=== PATIENT | female | born 2000 | race Caucasian/White ===

== ENCOUNTER 2022-05-08 10:35 | Outpatient (CLI) | payer OTHER, SELFPAY ==
[2022-05-08 11:07] LABS: Total Volume 24 Hour Urine 2600 ml
[2022-05-08 11:10] LABS: Specific Gravity Ur 1.012
[2022-05-08 11:17] LABS: Total Protein Urine 24 Hr 156 mg/24hr (28-141); Total Protein Urine Random 6 mg/dL
== END 2022-05-08 10:36 | disposition home or self-care (01) ==
LOC: ANHLAB 10:44
PROVIDERS: Visit Provider Student in an Organized Health Care Education/Training Program
DX: O16.9 Unspecified maternal hypertension, unspecified trimester (principal); Z3A.00 Weeks of gestation of pregnancy not specified
CPT/HCPCS: 81050; 84156

== ENCOUNTER 2022-08-30 09:38 | Inpatient (IN) | payer OTHER, SELFPAY ==
[2022-08-30] VITALS (42 sets, daily range): BP systolic 44–154; BP diastolic 22–130; PULSE 60–189; RESP 18; TEMP 36.6–37.3; O2SAT 95–100; BMI 38.9
[2022-08-30 10:54] LABS: Basophils Percent Auto 0.2 % (0.2-1.2); Eosinophils Absolute Auto 0.1 K/mm3 (0-0.3); Eosinophils Percent Auto 0.5 % (0-4.4); Hematocrit 38.4 % (37.0-47.0); Hemoglobin 12.5 g/dL (12.0-15.0); Immature Granulocyte Absolute 0.08 K/mm3 (0.00-0.031); Immature Granulocyte Percent A 0.7 % (0-0.5); Lymphocytes Absolute Auto 1.35 K/mm3 (0.9-3.2); Lymphocytes Percent Auto 11.3 % (18.3-44.2); Mean Corpuscular HGB Conc 32.6 g/dl (32-36); Mean Corpuscular Hemoglobin 29.1 pg (26-34); Mean Corpuscular Volume 89.3 fl (80-100); Mean Platelet Volume 10.2 fl (7.4-10.4); Monocytes Absolute Auto 0.6 K/mm3 (0.1-0.6); Monocytes Percent Auto 4.9 % (2.6-8.5); Neutrophils Absolute Auto 9.9 K/mm3 (1.3-6.7); Neutrophils Percent Auto 82.4 % (45.5-73.1); Platelet Count Result 245 k/mm3 (150-375); Red Cell Distribution Width 15.3 % (11.5-14.5)
[2022-08-30] MEDS: AMPICILLIN 2 GM/NS 100 ML 2 GM/100 ML BAG IVPB (11:20)
[2022-08-30] MEDS: LACTATED RINGERS 1,000 ML 125 ML IV CONT ×2 (11:21→17:33)
[2022-08-30] MEDS: OXYTOCIN 30 UNITS/NS 500 ML 30 UNITS/500 ML BAG 6 UNITS IV CONT (11:45)
--- NOTE | 2022-08-30 11:54 | PM.IMHP ---
H&P: HPI History of Present Illness Date/Time: 08/30/22 11:54 Chief Complaint: Ruptured membranes at term Narrative: a 22-year-old 1 para 0 who presents at term with spontaneous rupture membranes prior to admission. Her has been uncomplicated. She is positive for group B strep and will be prophylaxed PMFSH Family History Family History Other No pertinent family history Social History Social History Smoking status: Never smoker Second hand tobacco smoke exposure: No Substance use: never Spiritual care concerns: No Meds Home Medications and Allergies Home Medications Medication Instructions Recorded Confirmed Type ferrous sulfate 325 mg (65 mg 325 mg PO DAILY 07/31/22 07/31/22 History iron) tablet labetalol 100 mg tablet 100 mg PO Q12H 07/31/22 07/31/22 History prenat.vits,dawson,zzl-hvhh-tuaqv 1 tablet PO DAILY 07/31/22 07/31/22 History Allergies Allergy/AdvReac Type Severity Reaction Status Date / Time No Known Allergies Allergy Verified 07/31/22 14:38 Vital Signs Vital Signs - 24 hr 08/30/22 10:46 08/30/22 11:01 08/30/22 11:31 Pulse Rate 86 83 78 Blood Pressure 135/92 H 132/81 135/91 H 08/30/22 11:38 Pulse Rate 77 Blood Pressure 125/85 Exam Const: General: cooperative, healthy appearing and comfortable Nutritional Appearance: average body habitus Orientation/consciousness: oriented to person, oriented to place and oriented to time Resp: Effort & Inspection: normal respiratory effort Cardio: Rate: regular rate Rhythm: regular rhythm Heart sounds: S1 normal heart sound present and S2 normal heart sound present GI: Inspection: normal to inspection : External Female Exam: normal external appearance Speculum Exam - Vagina: normal appearance of the vagina Speculum Exam - Cervix: normal appearance of the cervix ( cervix 1/ 50%/ -2 FHTs reassuring) H&P: Results Labs Labs: Short CBC 08/30/22 Range/Units 10:43 WBC 12.0 H (4.5-10.0) K/mm3 Hgb 12.5 (12.0-15.0) g/dL Hct 38.4 (37.0-47.0) % Plt Count 245 (150-375) k/mm3 Assessment and Plan Assessment and plan (1) Term : Code(s): Z34.90 - Encounter for supervision of normal , unspecified, unspecified trimester Status: Acute (2) Positive testing for group B Streptococcus: Code(s): B95.1 - Streptococcus, group B, as the cause of diseases classified elsewhere Status: Acute Plan spontaneous vaginal delivery is expected. Group B strep prophylaxis will be undertaken. She has an epidural candidate will add Pitocin as she is jacobo irregularly
[2022-08-30 13:53] LABS: Alanine Aminotransferase 29 U/L (6-35); Albumin Level 4.1 g/dL (3.5-5.1); Alkaline Phosphatase 107 U/L (38-126); Anion Gap 9 mmol/L (8-16); Aspartate Amino Transferase 26 U/L (14-36); Bilirubin,Total 0.5 mg/dL (0.2-1.3); Blood Urea Nitrogen 12 mg/dL (7-17); Calcium 9.3 mg/dL (8.4-10.2); Carbon Dioxide 24 mmol/L (22-30); Chloride 101 mmol/L (98-107); Estimated CRCL calculation 166 ml/min; Estimated Glomerular Filt Rate > 60; Glucose 109 mg/dL (65-110); Potassium 4.1 mmol/L (3.4-5.0); Sodium 134 mmol/L (137-145); Uric Acid 5.3 mg/dL (2.5-7.5)
[2022-08-30 14:33] LABS: HIV 1/2 Ab P24 Ag Result Negative (Negative)
[2022-08-30] MEDS: AMPICILLIN 1 GM/NS 50 ML 1 GM/50 ML BAG IVPB (15:21)
--- NOTE | 2022-08-30 15:58 | PM.OBPNLAB ---
Pain Control Date/time seen: 08/30/22 15:58 Pain control: tolerating well Pelvic Exam Dilation (cm): 7 Amniotic membrane status: Leaking
[2022-08-30] MEDS: fentaNYL CITRATE INJ (*CRX) 100 MCG/2 ML VIAL 50 MCG IV PUSH (17:34)
--- NOTE | 2022-08-30 18:14 | PM.OBPNLAB ---
Pain Control Date/time seen: 08/30/22 18:14 Pain control: tolerating well and epidural Pelvic Exam Dilation (cm): 10 Amniotic membrane status: Leaking
--- NOTE | 2022-08-30 19:21 | PM.OBPRVD ---
OB - Delivery Note Procedure Delivery date: 08/30/22 Events: Positive Group B Strep (GBS) Induction method: None Delivery augmentation: Pitocin Delivery monitor: External FHT Route of delivery: Laceration Description: None Anesthesia type: Epidural Disposition: Floor [place] Baby Date of : 08/30/22 Time of : 19:10 Weeks of gestation at delivery: 40 Infant gender: Female Weight (pounds): 7 Weight (ounces): 12 presentation: vertex position: Right Occiput Anterior Placenta delivery description: Spontaneous Cord Vessel Description: 3 Vessels score one minute: 8 score five minutes: 9 Narrative: amp x 2
--- NOTE | 2022-08-30 21:37 | PC.NURSE ---
Patient transferred to post room #286 per wheelchair from labor and delivery. Support person present. Oriented to unit, room, information board, rooming in, admission packet and security measures. Patient verbalizes understanding.
[2022-08-31 03:40] VITALS: BP 132/74; PULSE 90; RESP 20; TEMP 37.1
[2022-08-31 05:11] LABS: Hematocrit 36.3 % (37.0-47.0); Hemoglobin 11.9 g/dL (12.0-15.0)
--- NOTE | 2022-08-31 06:37 | P.PNOB_ITS ---
OB - PN: Subj Subjective Date/time seen: 08/31/22 06:37 Patient comments: no complaints and pain well controlled baby status: doing well OB - PN: Obj Data Labs CBC & Chem 7: 08/31/22 03:42 08/30/22 13:33 Labs: Laboratory Results - last 24 hr 08/30/22 08/30/22 08/30/22 10:43 10:43 13:33 WBC 12.0 H RBC 4.30 Hgb 12.5 Hct 38.4 MCV 89.3 MCH 29.1 MCHC 32.6 RDW 15.3 H Plt Count 245 MPV 10.2 Immature Gran % (Auto) 0.7 H Neut % (Auto) 82.4 H Lymph % (Auto) 11.3 L [place] % (Auto) 4.9 Eos % (Auto) 0.5 Baso % (Auto) 0.2 Lymph # (Auto) 1.35 [place] # (Auto) 0.6 Eos # (Auto) 0.1 Baso # (Auto) 0.0 Abs Immat Gran (auto) 0.08 H Absolute Neuts (auto) 9.9 H Absolute Nucleated RBC 0.0 Nucleated RBC % 0.0 Sodium 134 L Potassium 4.1 Chloride 101 Carbon Dioxide 24 Anion Gap 9 BUN 12 Creatinine 0.60 L Estim Creat Clear Calc 166 Estimated GFR > 60 Glucose 109 Uric Acid 5.3 Calcium 9.3 Total Bilirubin 0.5 AST 26 ALT 29 Alkaline Phosphatase 107 Total Protein 7.0 Albumin 4.1 HIV 1&2 Ab/P24 Ag 4thGn Blood Type O Positive Antibody Screen Negative 08/30/22 08/31/22 13:33 03:42 WBC RBC Hgb 11.9 L Hct 36.3 L MCV MCH MCHC RDW Plt Count MPV Immature Gran % (Auto) Neut % (Auto) Lymph % (Auto) [place] % (Auto) Eos % (Auto) Baso % (Auto) Lymph # (Auto) [place] # (Auto) Eos # (Auto) Baso # (Auto) Abs Immat Gran (auto) Absolute Neuts (auto) Absolute Nucleated RBC Nucleated RBC % Sodium Potassium Chloride Carbon Dioxide Anion Gap BUN Creatinine Estim Creat Clear Calc Estimated GFR Glucose Uric Acid Calcium Total Bilirubin AST ALT Alkaline Phosphatase Total Protein Albumin HIV 1&2 Ab/P24 Ag 4thGn Negative Blood Type Antibody Screen OB - PN A/P Plan day: 1 Plan: routine care Time Spent With Patient Time: Total time spent is greater than 50% in coordination of care (as documented) at patient's floor/unit and/or counseling patient: Time with patient: less than 15 minutes Exam Const: General: cooperative, healthy appearing and comfortable Nutritional Appearance: average body habitus Resp: Effort & Inspection: normal respiratory effort GI: Inspection: normal to inspection
--- NOTE | 2022-08-31 06:43 | PM.DS ---
DS: Admitting Diagnosis Discharge Date Admitting Diagnosis term positive group B strep DS: Discharge Diagnosis Discharge Diagnosis (1) Positive testing for group B Streptococcus: Code(s): B95.1 - Streptococcus, group B, as the cause of diseases classified elsewhere Status: Acute (2) Term : Code(s): Z34.90 - Encounter for supervision of normal , unspecified, unspecified trimester Status: Acute DS: Summary Hospital Course Reason for hospitalization: patient was admitted in active labor at term Hospital Course: patient was admitted in active labor at term. She underwent spontaneous vaginal delivery with adequate group B strep prophylaxis. She used epidural anesthesia. The procedure was unremarkable. Her 48hour course was unremarkable she remained afebrile. She was up, voiding without difficulty, ambulating, breast-feeding, generally without complaints. Time Spent with Patient Time attestation: Total time spent providing and/or coordinating discharge services: Exam Const: General: cooperative, healthy appearing and comfortable Orientation/consciousness: oriented to person, oriented to place and oriented to time HENMT: Head: normal to inspection Resp: Effort & Inspection: normal respiratory effort GI: Inspection: normal to inspection DS: Data Data Completed and Pending Labs on day of discharge: Labs from last 24 hours 08/31/22 08/30/22 08/30/22 03:42 13:33 13:33 WBC RBC Hgb 11.9 L Hct 36.3 L MCV MCH MCHC RDW Plt Count MPV Immature Gran % (Auto) Neut % (Auto) Lymph % (Auto) [place] % (Auto) Eos % (Auto) Baso % (Auto) Lymph # (Auto) [place] # (Auto) Eos # (Auto) Baso # (Auto) Abs Immat Gran (auto) Absolute Neuts (auto) Absolute Nucleated RBC Nucleated RBC % Sodium 134 L Potassium 4.1 Chloride 101 Carbon Dioxide 24 Anion Gap 9 BUN 12 Creatinine 0.60 L Estim Creat Clear Calc 166 Estimated GFR > 60 Glucose 109 Uric Acid 5.3 Calcium 9.3 Total Bilirubin 0.5 AST 26 ALT 29 Alkaline Phosphatase 107 Total Protein 7.0 Albumin 4.1 RPR HIV 1&2 Ab/P24 Ag 4thGn Negative Blood Type Antibody Screen 08/30/22 08/30/22 08/30/22 10:43 10:43 10:43 WBC 12.0 H RBC 4.30 Hgb 12.5 Hct 38.4 MCV 89.3 MCH 29.1 MCHC 32.6 RDW 15.3 H Plt Count 245 MPV 10.2 Immature Gran % (Auto) 0.7 H Neut % (Auto) 82.4 H Lymph % (Auto) 11.3 L [place] % (Auto) 4.9 Eos % (Auto) 0.5 Baso % (Auto) 0.2 Lymph # (Auto) 1.35 [place] # (Auto) 0.6 Eos # (Auto) 0.1 Baso # (Auto) 0.0 Abs Immat Gran (auto) 0.08 H Absolute Neuts (auto) 9.9 H Absolute Nucleated RBC 0.0 Nucleated RBC % 0.0 Sodium Potassium Chloride Carbon Dioxide Anion Gap BUN Creatinine Estim Creat Clear Calc Estimated GFR Glucose Uric Acid Calcium Total Bilirubin AST ALT Alkaline Phosphatase Total Protein Albumin RPR Pending HIV 1&2 Ab/P24 Ag 4thGn Blood Type O Positive Antibody Screen Negative Discharge Plan Discharge Attending physician on discharge: Maikel Rebolledo Discharging Clinician: Maikel Rebolledo Patient Disposition: Home, Self-Care Activity: may shower and no straining Diet: heart healthy Wound Care Instructions: follow printed instructions Patient Instructions: Antibiotic Form Stand Alone Forms: General Discharge Information Follow-up/Referrals: Maikel Rebolledo MD [Physician] - Discharge Medications: Continued ferrous sulfate 325 mg (65 mg iron) Tablet 325 mg PO DAILY #2 Tablet 1 tablet PO DAILY Discontinued labetalol 100 mg Tablet 100 mg PO Q12H Date of admission: 08/30/22 09:38 Primary Care Provider: Waqar BATISTA
[2022-08-31] MEDS: IBUPROFEN 600 MG TABLET PO (07:06)
[2022-08-31] MEDS: DOCUSATE SODIUM 100 MG CAPSULE PO ×2 (08:03→18:00)
[2022-08-31] MEDS: MULTIVIT/MIN/PREN/FOL AC/IRON TABLET 1 TAB PO (08:03)
[2022-08-31 09:10] VITALS: BP 138/81; PULSE 81; RESP 18; TEMP 36.9; O2SAT 97
--- NOTE | 2022-08-31 09:16 | WPDANLDPN2 ---
Anes-Prog Note L&D Date/Time: 08/31/22 09:16 Comfortable throughout: labor and delivery Neuraxial method: epidural Epidural/Spinal procedure site: clean & non-tender Neuro status: Neuro function grossly intact. Cardiovascular status: normal Respiratory status: normal Airway patency: baseline Mental status: baseline Post-Op hydration status: normal Vital Signs: Last Vital Signs Temp 37.1 C 08/31/22 03:40 Pulse 90 08/31/22 03:40 Resp 20 08/31/22 03:40 BP 132/74 08/31/22 03:40 Pulse Ox 100 08/30/22 18:31 O2 Del Method Room Air 08/30/22 18:00 Pain score (VAS): 11/27 I/O: Intake & Output 08/30/22 08/31/22 08/31/22 23:59 07:59 15:59 Intake Total 2550 Output Total 59 Balance 2491 Post-procedural complaints: none Patient feedback: Patient satisfied with anesthetic care.
[2022-08-31 12:25] VITALS: BP 136/69; PULSE 82; RESP 18; TEMP 36.9; O2SAT 96
[2022-08-31 12:40] LABS: Rapid Plasma Reagin Non-Reactive (NonReactive)
--- NOTE | 2022-08-31 14:19 | PC.NURSE ---
[id number] Introductions were made, then consulted with patient to assess needs related to . Mother led the conversation with her?plans to feed?her infant and the?experience so far. Resources provided for inpatient and outpatient services using a resource guide and mom/baby guide. Mother voiced understanding of information and will call if there is a request for assistance. Reported to primary RN. [phone] Consulted with patient to assess needs related to . Mother led conversation with her experience with feeding baby so far. Mother works well with her infant with encouragement. Reviewed working with infant, breast, nipples and how to protect the nipples with an optimal deep latch, good positioning, and good hand washing. Encouraged understanding the benefits of skin to skin, responding to feeding cues, frequencies of feeding 8-12 times in 24 hours (approximately 2-3 hours), duration of feedings, milk production, intake/output feeding sheet and signs of adequate intake encouraging swallowing at the breast. Reviewed positioning and alignment, supporting breast, off-centered (asymmetrical latch) and leading with the chin with big, open, wide gape. Infant latched optimally to the right breast in football position. Education given to mother of how to visualize suck/swallow ratios and drinking at the breast. was able to maintain latch without discomfort to mother. Resources used to facilitate learning were used from the visual handout, tool, mom and baby guide. Mother voiced understanding of the education shared, calling for assistance if the does not latch or if there is discomfort with . Reported to the primary RN.
[2022-08-31 15:50] VITALS: BP 131/57; PULSE 88; RESP 16; TEMP 36.8; O2SAT 100
[2022-08-31 18:31] VITALS: BP 149/88; PULSE 80; RESP 18; TEMP 37.1; O2SAT 97
[2022-08-31 20:30] VITALS: BP 133/70; PULSE 86
[2022-09-01] MEDS: ACETAMINOPHEN 325 MG TABLET 650 MG PO (01:10)
[2022-09-01] MEDS: IBUPROFEN 600 MG TABLET PO (01:10)
--- NOTE | 2022-09-01 07:57 | PM.OBPNVD ---
OB - PN: Subj Subjective Date/time seen: 09/01/22 07:57 Patient comments: no complaints and pain well controlled baby status: doing well and nursing well OB - PN: Obj Data Labs CBC & Chem 7: 08/31/22 03:42 08/30/22 13:33 Labs: Laboratory Results - last 24 hr 08/30/22 10:43 RPR Non-reactive OB - PN A/P Plan day: 2 Plan: routine care, discharge home and follow up 6 weeks Time Spent With Patient Time: Total time spent is greater than 50% in coordination of care (as documented) at patient's floor/unit and/or counseling patient: Time with patient: less than 15 minutes Exam Const: General: cooperative, healthy appearing and comfortable Nutritional Appearance: average body habitus Orientation/consciousness: oriented to person, oriented to place and oriented to time HENMT: Head: normal to inspection GI: Inspection: normal to inspection
[2022-09-01 08:00] VITALS: BP 137/79; PULSE 60; RESP 16; TEMP 36.4; O2SAT 99
--- NOTE | 2022-09-01 11:30 | PC.NURSE ---
Patient viewed the discharge video Mother & Baby Care, The First Two Weeks . Patient was given the opportunity and encouraged to ask questions. Patient verbalized understanding of information shared and has been given the mother/baby guide for home reference.
[2022-09-03 09:06] VITALS: BP 136/88; PULSE 73; RESP 20; TEMP 37; O2SAT 100
== END 2022-09-01 12:44 | disposition home or self-care (01) | DRG 807 ==
LOC: ANHLDR 10:01 → ANHOB2 21:42
PROVIDERS: Admitting Provider Obstetrics & Gynecology; Visit Provider Obstetrics & Gynecology
DX: O99.824 Streptococcus B carrier state complicating childbirth (principal); Z37.0 Single live birth; O10.92 Unspecified pre-existing hypertension complicating childbirth; O77.0 Labor and delivery complicated by meconium in amniotic fluid; Z3A.40 40 weeks gestation of pregnancy
CPT/HCPCS: 36415; 80053; 84112; 84550; 85014; 85018; 85025; 86592; 86703; 86850; 86900; 86901; A9270; G0432; J0290; J2590; J2795; J3010; J7120

== ENCOUNTER 2025-05-31 06:16 | Inpatient (IN) | payer OTHER, SELFPAY ==
[2025-05-31] VITALS (161 sets, daily range): BP systolic 79–153; BP diastolic 39–90; PULSE 30–162; TEMP 36.3–37.3; O2SAT 85–100; BMI 40.8
--- NOTE | 2025-05-31 06:16 | LDADM ---
This patient, Reena Monge, was admitted to Labor/Delivery/Recovery 107 on 05/31/25 at 06:16. Plans for labor, pain management and were discussed with patient. Patient/family oriented to hospital policies and general routines including ID bracelet, bed and alarms, visiting hours, pain management, procedures, bathroom and other care routines, personal items, smoking policy, room service/diet and guest tray routines, infant security routines, and visiting hours. Patient/Family are encouraged to report perceived risks to care and to ask questions if they do not understand what they are told or what they should do. See OBIX for further documentation.
--- NOTE | 2025-05-31 06:43 | PM.IMHP ---
H&P: HPI History of Present Illness Date/Time: 05/31/25 06:43 Chief Complaint: Induction of labor Narrative: This is a 25-year-old 2 para last menstrual period EDC is 05/27/2020 confirmed by 10 week ultrasound presents for induction of labor at 40 5 7 weeks gestation. She has positive group B strep. She did fail her 1hour glucose tolerance test but was 4/4 normal under 3hour Review of Systems Review of Systems: All systems reviewed & are unremarkable except as noted in HPI and below PMFSH Family History Family History Other No pertinent family history Social History Social History Smoking status: Never smoker Second hand tobacco smoke exposure: No Substance use: never Spiritual care concerns: No Meds Home Medications and Allergies Home Medications ?Medication ?Instructions ?Recorded ?Confirmed ?Type prenat.vits,dawson,qtw-hfya-capgh 1 tablet PO DAILY 07/31/22 05/10/25 History Allergies Allergy/AdvReac Type Severity Reaction Status Date / Time No Known Allergies Allergy Verified 05/10/25 13:46 Exam Const: General: cooperative, healthy appearing and comfortable Nutritional Appearance: average body habitus Orientation/consciousness: oriented to person, oriented to place and oriented to time HENMT: Head: normal to inspection Resp: Effort & Inspection: normal respiratory effort Cardio: Rate: regular rate Rhythm: regular rhythm Heart sounds: S1 normal heart sound present and S2 normal heart sound present GI: Inspection: normal to inspection (Gravid soft uterus) : External Female Exam: normal external appearance Speculum Exam - Vagina: normal appearance of the vagina Speculum Exam - Cervix: normal appearance of the cervix (2/50/-2. FHTs reassuring) Assessment and Plan Assessment and plan (1) Term : Code(s): Z34.90 - Encounter for supervision of normal , unspecified, unspecified trimester Status: Acute (2) Positive testing for group B Streptococcus: Code(s): B95.1 - Streptococcus, group B, as the cause of diseases classified elsewhere Status: Acute Plan Medical induction of labor. Group B strep prophylaxis. Spontaneous vaginal delivery is expected. She is an epidural candidate
[2025-05-31 07:05] LABS: Hematocrit 38.8 % (37.0-47.0); Hemoglobin 12.7 g/dL (12.0-15.0); Immature Granulocyte Percent A 0.9 % (0-0.5); Lymphocytes Absolute Auto 1.88 K/mm3 (0.9-3.2); Mean Corpuscular HGB Conc 32.7 g/dl (32-36); Mean Corpuscular Hemoglobin 28.3 pg (26-34); Mean Corpuscular Volume 86.4 fl (80-100); Nucleated Red Blood Cells Absolute Auto 0.000 K/mm3 (0.0-0.012); Nucleated Red Blood Cells Perc 0.0 % (0.0-0.2); Platelet Count Result 215 k/mm3 (150-375); Red Blood Count 4.49 M/mm3 (4.2-5.4); White Blood Count 12.5 K/mm3 (4.5-10.0)
[2025-05-31] MEDS: OXYTOCIN 30 UNITS/NS 500 ML 30 UNITS/500 ML BAG IV CONT (07:20)
[2025-05-31] MEDS: LACTATED RINGERS 1,000 ML 125 ML IV CONT ×3 (07:20→17:32)
[2025-05-31] MEDS: AMPICILLIN SODIUM 2 GM in SODIUM CHLORIDE 0.9% IV 100 ML 200 ML IVPB (07:49)
[2025-05-31 08:14] LABS: Syphilis IgG/IgM Antibody Non-Reactive (Nonreactive)
--- NOTE | 2025-05-31 11:04 | PM.OBPNLAB ---
Pain Control Date/time seen: 05/31/25 11:04 Pain control: tolerating well Pelvic Exam Amniotic membrane status: Leaking Contractions Monitor mode: External Contraction frequency: 3 Contraction pattern: Regular Status status: Category l
[2025-05-31] MEDS: AMPICILLIN SODIUM 1 GM in SODIUM CHLORIDE 0.9% IV 50 ML 100 ML IVPB ×3 (11:57→20:01)
--- NOTE | 2025-05-31 12:24 | PM.OBPNLAB ---
Pain Control Date/time seen: 05/31/25 12:24 Pain control: tolerating well Pelvic Exam Dilation (cm): 4 Effacement (%): 75 station: -1 Amniotic membrane status: Leaking Contractions Monitor mode: External Contraction frequency: 3 Contraction pattern: Regular Status status: Category l
--- NOTE | 2025-05-31 16:51 | P.PNAN_ITS ---
Anes - Eval Pre Procedure Procedure: Labor epidural Date/Time: 05/31/25 16:51 Surgeon: Michelle Preop Diagnosis: Abdominal pain with contractions Pre Op Diagnosis: IOL Patient Data Age: 25 Gender: F Height: 1.73 m Weight: 122 kg Last Vital Signs Temp 97.6 F 05/31/25 16:06 Pulse 80 05/31/25 16:46 BP 132/68 05/31/25 16:46 O2 Del Method Room Air 05/31/25 07:00 Allergies Allergy/AdvReac Type Severity Reaction Status Date / Time No Known Allergies Allergy Verified 05/10/25 13:46 Home Medications ?Medication ?Instructions ?Recorded ?Confirmed ?Type prenat.vits,dawson,qmm-hjts-xufkh 1 tablet PO DAILY 07/31/22 05/10/25 History Laboratory Tests 05/31/25 06:57 WBC 12.5 H K/mm3 (4.5-10.0) RBC 4.49 M/mm3 (4.2-5.4) Hgb 12.7 g/dL (12.0-15.0) Hct 38.8 % (37.0-47.0) MCV 86.4 fl (80-100) MCH 28.3 pg (26-34) MCHC 32.7 g/dl (32-36) RDW 14.6 H % (11.5-14.5) Plt Count 215 k/mm3 (150-375) MPV 10.9 H fl (7.4-10.4) Immature Gran % (Auto) 0.9 H % (0-0.5) Neut % (Auto) 78.9 H % (45.5-73.1) Lymph % (Auto) 15.0 L % (18.3-44.2) [place] % (Auto) 4.2 % (2.6-8.5) Eos % (Auto) 0.6 % (0-4.4) Baso % (Auto) 0.4 % (0.2-1.2) Lymph # (Auto) 1.88 K/mm3 (0.9-3.2) [place] # (Auto) 0.5 K/mm3 (0.1-0.6) Eos # (Auto) 0.1 K/mm3 (0-0.3) Baso # (Auto) 0.1 K/mm3 (0.0-0.1) Abs Immat Gran (auto) 0.11 H K/mm3 (0.00-0.031) Absolute Neuts (auto) 9.9 H K/mm3 (1.3-6.7) Absolute Nucleated RBC 0.000 K/mm3 (0.0-0.012) Nucleated RBC % 0.0 % (0.0-0.2) Syphilis IgG/IgM Ab Non-reactive (Nonreactive) Blood Type O Positive Antibody Screen Negative : gestational age HCG: positive Patient hx anesthesia problems: none Family hx anesthesia problems: none Results Review: All pre-operative results and documents have been reviewed as part of the pre- operative evaluation. [facility] Past Medical History Medical History (Updated 05/31/25 @ 16:52 by Sawyer Thomas Jr., CRNA) Morbid obesity Term Family History Family History Other No pertinent family history Social History Social History Smoking status: Never smoker Second hand tobacco smoke exposure: No Substance use: never Do You Feel Safe in your Home?: Yes Lack of Transportation: No Lack of Food: Never True Current Housing: I Have Housing Concerned About Future Housing: No Difficulty Paying Gas/Electric Bills: No Difficulty Paying for Meds: No Currently Unemployed: No Education: Trade/Vocational Certificate Difficulty w/ Childcare or Family Care: No Spiritual care concerns: No Exam Day of Procedure 05/31/25 16:51 Patient weight: morbidly obese Airway: Mallampati scale class II
--- NOTE | 2025-05-31 18:15 | PM.OBPNLAB ---
Pain Control Date/time seen: 05/31/25 18:15 Pain control: tolerating well and epidural Pelvic Exam Dilation (cm): 7 Effacement (%): 90 station: -1 Amniotic membrane status: Leaking Contractions Monitor mode: External Contraction frequency: 3 Contraction pattern: Regular Status status: Category l
--- NOTE | 2025-05-31 23:13 | P.PCNOB_ITS ---
OB - Vaginal Delivery Note Procedure Delivery date: 05/31/25 Events: Elective Induction of Labor and Positive Group B Strep (GBS) Induction method: AROM Delivery augmentation: Pitocin Delivery monitor: External FHT and External Uterine Route of delivery: forceps Episiotomy description: None Laceration Description: None Quantitative Blood Loss (ml): 62 Anesthesia type: Epidural Disposition: Floor Complications: No immediate complications [place] Baby Date of : 05/31/25 Time of : 23:03 Gestational Age by Date: 40 gender: Male presentation: vertex position: Right Occiput Anterior Placenta delivery description: Spontaneous Cord Vessel Description: 3 Vessels score one minute: 8 score five minutes: 9 Narrative: Patient was admitted for induction of labor she was group B strep positive at 40 and half weeks gestation when she was complete she pushed delivered the head spontaneously in the ANGELA position. Anterior posterior shoulder delivered spontaneously. Cord clamped x2 and cut passed off the table given Apgars of 8 [id number] 9 [id number]. Cord blood was drawn. Placenta delivered intact spontaneously. Twenty of Pitocin placed IV to help firm the uterus. She did receive 3 doses of ampicillin prophylactically for group B strep no tears or lacerations were noted there were no complications
--- NOTE | 2025-05-31 23:15 | P.DS_ITS ---
DS: Admitting Diagnosis Discharge Date 06/02/2025 Admitting Diagnosis Term /positive group B strep DS: Discharge Diagnosis Discharge Diagnosis (1) Positive testing for group B Streptococcus: Code(s): B95.1 - Streptococcus, group B, as the cause of diseases classified elsewhere Status: Acute (2) Term : Code(s): Z34.90 - Encounter for supervision of normal , unspecified, unspecified trimester Status: Acute DS: Summary Hospital Course Reason for hospitalization: Patient was admitted for induction of labor and underwent spontaneous vaginal delivery under epidural anesthesia at 11:03 p.m. on 05/31/2025 Hospital Course: Patient's hospital course unremarkable. She remained afebrile. She was up, voiding without difficulty, eating regular, generally without complaints Time Spent with Patient Time attestation: Total time spent providing and/or coordinating discharge services: Exam Const: General: cooperative, healthy appearing and comfortable Nutritional Appearance: average body habitus Orientation/consciousness: oriented to person, oriented to place and oriented to time HENMT: Head: normal to inspection Resp: Effort & Inspection: normal respiratory effort Cardio: Rate: regular rate Rhythm: regular rhythm Heart sounds: S1 normal heart sound present and S2 normal heart sound present GI: Inspection: normal to inspection (Gravid soft uterus) : External Female Exam: normal external appearance Speculum Exam - Vagina: normal appearance of the vagina Speculum Exam - Cervix: normal appearance of the cervix (2/50/-2. FHTs reassuring) DS: Data Data Completed and Pending Labs on day of discharge: Labs from last 24 hours 05/31/25 06:57 WBC 12.5 H RBC 4.49 Hgb 12.7 Hct 38.8 MCV 86.4 MCH 28.3 MCHC 32.7 RDW 14.6 H Plt Count 215 MPV 10.9 H Immature Gran % (Auto) 0.9 H Neut % (Auto) 78.9 H Lymph % (Auto) 15.0 L [place] % (Auto) 4.2 Eos % (Auto) 0.6 Baso % (Auto) 0.4 Lymph # (Auto) 1.88 [place] # (Auto) 0.5 Eos # (Auto) 0.1 Baso # (Auto) 0.1 Abs Immat Gran (auto) 0.11 H Absolute Neuts (auto) 9.9 H Absolute Nucleated RBC 0.000 Nucleated RBC % 0.0 Syphilis IgG/IgM Ab Non-reactive Blood Type O Positive Antibody Screen Negative Discharge Plan Discharge Attending physician on discharge: Maikel Rebolledo Discharging Clinician: Maikel Rebolledo Patient Disposition: Home Activity: may shower, no straining and pelvic rest Diet: heart healthy Wound Care Instructions: follow printed instructions Patient Instructions: Antibiotic Form Patient Language: Turkmen Stand Alone Forms: General Discharge Information Follow-up/Referrals: Maikel Rebolledo MD [Physician] - Discharge Medications: Continued prenat.vits,dawson,bto-ngmm-qzpmt Tablet 1 tablet PO DAILY Date of admission: 05/31/25 06:16 Primary Care Provider: PHYSICIAN,CHIEF LIBRARIAN [employer] Admitting Provider: Maikel Rebolledo Attending physician on admission: Maikel Rebolledo Condition: Stable
[2025-05-31] MEDS: OXYTOCIN 30 UNITS/NS 500 ML 30 UNITS/500 ML BAG 125 UNITS IV CONT (23:33)
[2025-06-01] VITALS (15 sets, daily range): BP systolic 117–139; BP diastolic 57–70; PULSE 91–121; RESP 16–18; TEMP 36.6–37.6; O2SAT 96–99
--- NOTE | 2025-06-01 02:12 | OBPPTRN ---
Patient transferred to post room #281 via wheelchair. Support person present. Oriented to unit, room, information board, rooming in, admission packet and security measures. Patient verbalizes understanding.
[2025-06-01] MEDS: IBUPROFEN 600 MG TABLET PO ×2 (04:02→09:48)
[2025-06-01 05:57] LABS: Hematocrit 34.3 % (37.0-47.0); Hemoglobin 11.0 g/dL (12.0-15.0)
--- NOTE | 2025-06-01 06:57 | PM.OBPNVD ---
OB - PN: Subj Subjective Date/time seen: 06/01/25 06:57 Patient comments: no complaints, pain well controlled and tolerating diet [place] baby status: doing well OB - PN: Obj Data Labs 06/01/25 05:11 Labs: Laboratory Results - last 24 hr 05/31/25 06/01/25 06:57 05:11 WBC 12.5 H RBC 4.49 Hgb 12.7 11.0 L Hct 38.8 34.3 L MCV 86.4 MCH 28.3 MCHC 32.7 RDW 14.6 H Plt Count 215 MPV 10.9 H Immature Gran % (Auto) 0.9 H Neut % (Auto) 78.9 H Lymph % (Auto) 15.0 L [place] % (Auto) 4.2 Eos % (Auto) 0.6 Baso % (Auto) 0.4 Lymph # (Auto) 1.88 [place] # (Auto) 0.5 Eos # (Auto) 0.1 Baso # (Auto) 0.1 Abs Immat Gran (auto) 0.11 H Absolute Neuts (auto) 9.9 H Absolute Nucleated RBC 0.000 Nucleated RBC % 0.0 Syphilis IgG/IgM Ab Non-reactive Blood Type O Positive Antibody Screen Negative OB - PN A/P Assessment and Plan (1) Term : Code(s): Z34.90 - Encounter for supervision of normal , unspecified, unspecified trimester Status: Acute (2) Positive testing for group B Streptococcus: Code(s): B95.1 - Streptococcus, group B, as the cause of diseases classified elsewhere Status: Acute Plan routine Time Spent With Patient Time: Total time spent is greater than 50% in coordination of care (as documented) at patient's floor/unit and/or counseling patient: Review of Systems Review of Systems: All systems reviewed & are unremarkable except as noted in HPI and below Exam Const: General: cooperative, healthy appearing and comfortable Nutritional Appearance: average body habitus Orientation/consciousness: oriented to person, oriented to place and oriented to time HENMT: Head: normal to inspection Resp: Effort & Inspection: normal respiratory effort Cardio: Rate: regular rate Rhythm: regular rhythm Heart sounds: S1 normal heart sound present and S2 normal heart sound present GI: Inspection: normal to inspection (Gravid soft uterus) : External Female Exam: normal external appearance Speculum Exam - Vagina: normal appearance of the vagina Speculum Exam - Cervix: normal appearance of the cervix (2/50/-2. FHTs reassuring)
--- NOTE | 2025-06-01 08:15 | PC.NURSE ---
Primary RN obtained a blood sugar WNL for infant and he was taken to the room to eat. Mom states that she used nipples morgan with her first baby and breastfed for 4 months. She chooses to use the nipple shield now. She is able to place the shield appropriately. Baby is awake and alert but is spitting up thick mucous and gagging. We burped him and sat him upright. When mom tried to latch baby opened his mouth in a wide gape but when the shield was placed in his mouth he would gag and have to be removed so that mom could burp him. He spit up some more and mom is encouraged to give him a few minutes to recover before trying to latch again. It has been many hours since the last feeding so mom is advised to call out for assistance if she is unable to get baby to eat. Patient agrees, primary RN updated.
[2025-06-01] MEDS: MULTIVIT/MIN/PREN/FOL AC/IRON TABLET 1 TAB PO (09:48)
--- NOTE | 2025-06-01 10:28 | WPDANLDPN2 ---
Anes-Prog Note L&D Date/Time: 06/01/25 10:28 Comfortable throughout: labor and delivery Neuraxial method: epidural Epidural/Spinal procedure site: clean & non-tender Neuro status: Neuro function grossly intact. Cardiovascular status: normal Respiratory status: normal Airway patency: baseline Mental status: baseline Vital Signs: Last Vital Signs Temp 37.0 C 06/01/25 02:49 Pulse 100 06/01/25 02:49 Resp 18 06/01/25 02:49 BP 135/68 06/01/25 02:49 Pulse Ox 97 06/01/25 02:49 O2 Del Method Room Air 06/01/25 07:56 Pain score (VAS): 2 I/O: Intake & Output 05/31/25 06/01/25 06/01/25 23:59 07:59 15:59 Intake Total 1583.3 Output Total 462 90 Balance 1121.3 -90 Patient feedback: Patient satisfied with anesthetic care.
--- NOTE | 2025-06-01 14:15 | PC.NURSE ---
Patient called out for assistance waking baby for feeding. He has just been circumcised and has not fed for several hours. We attempted to wake him with stimulation, sitting upright, and undressing. He stuck his tongue out a few times but never fully woke. We tried with and without the nipple shield but were unable to obtain any latches. Mom brought 20mm mrogan with her but she believes they may be too small and caused some bleeding at the last feeding. A 24mm shield was given. Mom agrees to initiate pumping at this time to see if she can get some volume to give baby. A hospital breast pump was provided. Instructions given on cleaning, care, usage, that there should be no pain, collection, and storage of human milk. Patient was assessed for correct placement and flange size. She was given storage bottles, nipples, and syringes to pull up small amounts of milk. She was able to pump about 8ml and syringe fed baby 4ml.?Mother voiced understanding of the education shared along with mom/baby guide for additional resource information. Reported to the Primary RN.
--- NOTE | 2025-06-02 07:25 | P.PNOB_ITS ---
OB - PN: Subj Subjective Date/time seen: 06/02/25 07:25 Patient comments: no complaints, pain well controlled and tolerating diet [place] baby status: doing well OB - PN: Obj Data Labs 06/01/25 05:11 OB - PN A/P Assessment and Plan (1) Positive testing for group B Streptococcus: Code(s): B95.1 - Streptococcus, group B, as the cause of diseases classified elsewhere Status: Acute (2) Term : Code(s): Z34.90 - Encounter for supervision of normal , unspecified, unspecified trimester Status: Acute Plan home. fu in 6 weeks Time Spent With Patient Time: Total time spent is greater than 50% in coordination of care (as documented) at patient's floor/unit and/or counseling patient: Review of Systems 2 Review of Systems: All systems reviewed & are unremarkable except as noted in HPI and below Exam 2 Const: General: cooperative, healthy appearing and comfortable Nutritional Appearance: average body habitus Orientation/consciousness: oriented to person, oriented to place and oriented to time HENMT: Head: normal to inspection Resp: Effort & Inspection: normal respiratory effort Cardio: Rate: regular rate Rhythm: regular rhythm Heart sounds: S1 normal heart sound present and S2 normal heart sound present GI: Inspection: normal to inspection (Gravid soft uterus) : External Female Exam: normal external appearance Speculum Exam - Vagina: normal appearance of the vagina Speculum Exam - Cervix: normal appearance of the cervix (2/50/-2. FHTs reassuring)
[2025-06-02 07:40] VITALS: BP 121/71; PULSE 67; RESP 18; TEMP 36.8; O2SAT 99
[2025-06-02] MEDS: MULTIVIT/MIN/PREN/FOL AC/IRON TABLET 1 TAB PO (08:25)
--- NOTE | 2025-06-02 10:18 | PC.NURSE ---
Consulted with mother concerning needs and she shared that she is attempting at breast sometimes but is using her breast pump with each feeding and baby is bottle feeding well, she intends to continue to try and put baby to breast after going home. Mother is feeding appropriately for growth of infant and understands stimulating infant to eat if needed. Infant has had appropriate feedings in the last 24 hours meets the outcomes for weight, output, and jaundice at this time. Reinforced understanding of milk production, transition of milk, signs of adequate intake, transition of stool, prevention/relief of engorgement, plugged ducts, mastitis, responsive watching for feeding cues, the different methods of stimulating infant to breastfeed 1-3 hours after the start of the last feeding, community resources, and when to call a provider using the resource of the feeding sheet along with the mom and baby guide. Mother voiced understanding of the information shared, is confident to continue effectively feed her infant at home, when to call for assistance, denies any additional assistance or education at this time. Reported to the Primary RN.
== END 2025-06-02 13:24 | disposition home or self-care (01) | DRG 807 ==
LOC: ANHLDR 23:17 → ANHOB2 06-01 02:13
PROVIDERS: Admitting Provider Obstetrics & Gynecology; Visit Provider Obstetrics & Gynecology
DX: O99.824 Streptococcus B carrier state complicating childbirth (principal); Z37.0 Single live birth; Z3A.40 40 weeks gestation of pregnancy
CPT/HCPCS: 36415; 85014; 85018; 85025; 86593; 86850; 86900; 86901; A9270; J0290; J2590; J2795; J7120

== ENCOUNTER 2025-06-17 13:59 | Outpatient (RCR) | payer OTHER, SELFPAY ==
--- NOTE | 2025-06-17 15:24 | PC.NURSE ---
In- 1405 Out- 1455 Reason for visit: Mom using nipple shield, painful latch History: This patient, Reena is a , who delivered a baby boy vaginally on 05/31/25. She had an overall healthy with no significant history. She reports she breastfed her first born for 4 months, and did not have a low milk supply with that baby. She is currently using a nipple shield when she chooses to breastfeed, and is also pumping and bottle feeding. She comes in today with c/o pain with the infants latch. Infant History: This , Boom, is combo fed breastmilk from a bottle and also nursing at the breast. Mom states that he does not like formula and will not take it from a bottle, but will take her breastmilk from a bottle. He was born at 40 weeks, and has surpassed his weight. His weight today was 9lb 13oz. Mom states he has at least 8 wet diapers a day and 5 or more stools a day. She states when he take a bottle he eats between 3-4 oz of EBM, & when he nurses he usually latches and eats for about an hour. Observations: During the feeding session, it was noted that the rolls his top lip under. He is also has a shallow latch, and feeds on the tip of moms nipple. The infants tongue was noted to move past his gum line, and curl up on the sides when he cries. The TABBY tongue assessment tool was used on the infant and he scored a 6 out of 8, with 8 being WNL. 5 or below indicates tongue impairment. Infant was noted to have a tight mouth and did not want to open as wide as he should to establish a deeper latch. weight: 9lb 1oz Lowest weight:8lb 10oz Last weight: 8lb 15oz Plan of Care: Moms nipples were remeasured for the correct size so ensure she is using the correct size flanges for her pump and nipple shield. Mom is to continue using the nipple shield for pain. She was given instructions to be able to wean off the shield with time, and as her pain allows. Work on establishing a deeper latch with positioning and proper alignment. Continue to work on helping infant keep his lips in the correct flanged out position. If he rolls his top lip or she feels it is a shallow latch, delatch the infant and try again. Mom may continue using the pump and bottle feed if she so desires. She can use lanolin, hydrogel pads, silverettes, and breast shells to assist with pain on her nipples. Often, with time and as infant grows the pain with subside and mom with be able to feed at the breast with no pain as infant gets better at establishing a deeper latch. Until the infant is able to open his mouth wider and establish that deeper latch, she may experience some pain. Therefore, it is recommended she continue using the nipple shield until he is able to obtain a deeper latch. Recommend for deckhand engineer to assess for lip/tongue tie with her next appointment. Follow up plans: Follow up with your deckhand engineer as scheduled on 08/02. Call our office with new questions or concerns, or if you feel you need to schedule another follow up appointment.
== END 2025-09-15 23:59 | disposition home or self-care (01) ==
LOC: ANHOBOP 13:59
PROVIDERS: Visit Provider Pediatrics
DX: Z39.1 Encounter for care and examination of lactating mother (principal)
CPT/HCPCS: 99212; G0463